=== PATIENT | male | born 1970 | race Caucasian/White ===

== ENCOUNTER 2016-12-25 19:37 | Emergency (ER) | payer MEDICAID ==
[2016-12-25 19:39] VITALS: BMI 21.2
[2016-12-25 19:47] VITALS: BP 146/93; PULSE 82; TEMP 99.3
[2016-12-25] MEDS ORDERED: ONDANSETRON HCL 4 MG ODT TAB PO ONE (20:33)
[2016-12-25] MEDS ORDERED: HYDROmorphone 1 MG INJECTION IM ONE (20:33)
--- NOTE | 2016-12-25 20:37 | EDPRACDOC ---
- General Information Chief Complaint: Toothache Stated Complaint: HAD ORAL SURGERY TODAY SHARP PAIN IN THROAT Time Seen by Provider: 12/25/16 20:31 Information Source: Patient Mode Of Arrival: Car Home Medications: Home Medications Atorvastatin Calcium [Lipitor] 40 mg PO DAILY 12/25/16 Clindamycin [Cleocin] 450 mg PO TID #90 capsule 12/25/16 Ondansetron [Zofran Odt] 4 mg PO TID PRN #10 tab.rapdis 12/25/16 Oxycodone HCl/Acetaminophen [Percocet 5-325 mg Tablet] 1 tab PO Q4-6H PRN Allergies/Adverse Reactions: Allergies Allergy/AdvReac Type Severity Reaction Status Date / Time morphine Allergy Intermediate See Verified 10/23/16 09:33 Comments codeine [Codeine] Allergy Mild Nausea/Vomi Verified 10/23/16 09:33 ting NSAIDS (Non-Steroidal Allergy Mild See Verified 10/23/16 09:33 Anti-Inflamma Comments promethazine HCl Allergy Mild See Verified 10/23/16 09:33 [From Phenergan] Comments hydrocodone bitartrate Allergy Unknown Unknown Verified 10/23/16 09:33 [From Vicodin] Penicillins Allergy Unknown Unknown Verified 06/30/16 15:15 prednisone Allergy Unknown See Verified 10/23/16 09:33 Comments tramadol HCl [From Ultram] Allergy Anaphylaxis Verified 10/23/16 09:33 * CT DYE Allergy Unknown Unknown/See Uncoded 06/30/16 15:15 Comments - History of Present Illness Onset: vessel captain HPI: Pt had dental surgery today and c/o progressive pain in right side face and pain with swallowing, with nausea since surgery. Was given rx for oxy 5mg by dentist and has taken oxy 5mg x 3 since surgery with no relief. Denies sob, Was given no abx. Med hx = DM, HDL. Surgical hx = 2 oral surgeries. Pain Severity: Reports: Severe Relevant History of: Reports: Diabetes Modifying Factors: improves with: None ED Past Medical History - History Reviewed Yes Nurses notes reviewed and agree except as marked - Patient Medical History Cardiac History: Reports: Hypercholesterolemia GI/ History: Reports: Gastroesophageal Reflux Psychological History: Denies: Depression Additional Past Medical History: Chronic Left Knee Pain Surgical History: Reports: Cholecystectomy, Hernia Surgery. Denies: Tonsillectomy/Adnoidectomy - Social Medical History Smoking Status: Never smoker EDM Review of Systems - Review of Systems ROS Negative Except as Marked: Yes All systems reviewed and were negative except as marked Mouth: Pain, Other (pain with swallowing) - Physical Exam Constitutional: Alert, Distress (pain) Oriented to: Time, Person, Place Last recorded Vital Signs: Last Vital Signs Temp 99.3 F 12/25/16 19:41 Pulse 82 12/25/16 19:41 Resp 20 12/25/16 19:41 BP 146/93 12/25/16 19:41 Pulse Ox 95 12/25/16 19:41 Oxygen Pulse Oxygen Saturation 95 O2 Device Room Air Oxygen Flow Rate Fraction of Inspired Oxygen ( FIO2) - HEENT Head: Normal Eye Exam: negative: Conjunctival Injection, Scleral Icterus Oropharynx: Normal TMJ: Normal Nose: No Symptoms Reported Neck: Normal - Respiratory/Cardiovascular Respiratory: Normal - CTA Cardiovascular: Normal - GI Tenderness: Non tender - Musculoskeletal Back: Normal Extremities: Normal - Neurologic Mood Description: Normal Thought: Coherent Perception: Normal ED Tooth Problem Exam - HEENT Face: Normal Gingiva: Normal, Other (sutures present right lower side ) Palate: Normal Mouth Range of Motion: Normal Sinuses: Normal Oropharynx: Normal Neck: Normal - Other Exam Other Exam Findings: all teeth have been removed. pt was going to dentist for dentures Decision Time to Discharge: 20:39 - Departure Disposition: Home Condition: Stable Final Diagnosis: Pain following oral surgery Instructions: Dental Abscess (ED) Education/Counseling Given To: Patient, Family Member Education/Counseling Given Regarding: Diagnosis, Treatment, Prognosis, Follow Up Referrals: Alcides Gallegos PA [Primary Care Provider] - One Week Prescriptions: New Clindamycin [Cleocin] 450 mg PO TID #90 capsule Ondansetron [Zofran Odt] 4 mg PO TID PRN #10 tab.rapdis PRN Reason: Nausea/Vomiting No Action Oxycodone HCl/Acetaminophen [Percocet 5-325 mg Tablet] 1 tab PO Q4-6H PRN PRN Reason: Pain Atorvastatin Calcium [Lipitor] 40 mg PO DAILY Additional Instructions: Follow up with dentist for mouth pain and pain with swallowing. Return to ED for any new or worsening symptoms.
== END 2016-12-25 21:06 | disposition home or self-care (01) ==
LOC: ED 19:37
DX: K08.89 Other specified disorders of teeth and supporting structures (principal)
CPT/HCPCS: 99283; J1170; J3490